=== PATIENT | female | born 1985 | race Caucasian/White ===

== ENCOUNTER 2016-12-03 11:09 | Emergency (ER) | payer SELFPAY ==
[2016-12-03 11:58] VITALS: BMI 32.3
[2016-12-03 12:00] VITALS: BP 103/70; PULSE 74; RESP 18; TEMP 98.7; O2SAT 100
--- NOTE | 2016-12-03 12:13 | ED PDOC ---
Arrival/HPI - General Chief Complaint: ENT Problem Time Seen by Provider: 12/03/16 12:08 Historian: Patient - History of Present Illness Narrative History of Present Illness (Text): 12/03/16 18:12 31-year-old female presents today with a 2 day history of sore throat and pain with swallowing. Denies difficulty breathing. Patient complaining of nasal congestion. Complaining of left ear pain. Denies fevers at home. No chest pain or shortness of breath. Denies cough. No abdominal pain. No other complaints Time/Duration: Other (2 days) Symptom Onset: Gradual Symptom Course: Worsening Quality: Burning Severity Level: 3 Past Medical History - Provider Review Nursing Documentation Reviewed: Yes - Travel History Have you recently traveled outside [place] w/in the past 3 mons?: No - Infectious Disease Hx of Infectious Diseases: None - Tetanus Immunization Tetanus Immunization: Unknown - Past Medical History Past Medical History: No Previous - Psychiatric Hx Psychophysiologic Disorder: No Hx Anxiety: No Hx Bipolar Disorder: No Hx Depression: No Hx Emotional Abuse: No Hx Hallucinations: No Hx Panic Disorder: No Hx Post Traumatic Stress Disorder: No Hx Psychosis: No Hx Physical Abuse: No Hx Schizophrenia: No Hx Sexual Abuse: No Hx Substance Use: Yes - Past Surgical History Past Surgical History: No Previous - Anesthesia Hx Anesthesia: No Hx Anesthesia Reactions: No Hx Malignant Hyperthermia: No - Suicidal Assessment Feels Threatened In Home Enviroment: No Family/Social History - Physician Review Nursing Documentation Reviewed: Yes Family/Social History: Unknown Family HX Smoking Status: Current Some Days Smoker Hx Alcohol Use: Yes Frequency of alcohol use: Socially Hx Substance Use: Yes Hx Substance Use Treatment: No Allergies/Home Meds Allergies/Adverse Reactions: Allergies No Known Allergies Allergy (Verified 11/01/15 01:33) Review of Systems - Review of Systems Constitutional: absent: Fatigue, Fevers ENT: Sore Throat, Sinus Congestion, Other (Left ear pain) Respiratory: absent: SOB, Cough Cardiovascular: absent: Chest Pain, Palpitations Musculoskeletal: absent: Arthralgias Skin: absent: Rash, Pruritis Neurological: absent: Headache, Dizziness Psychiatric: absent: Anxiety, Depression Physical Exam Vital Signs Reviewed: Yes Vital Signs Temp Pulse Resp BP Pulse Ox 12/03/16 11:59 98.7 F 74 18 103/70 100 Temperature: Afebrile Blood Pressure: Normal Pulse: Regular Respiratory Rate: Normal Appearance: Positive for: Well-Appearing, Non-Toxic, Comfortable Pain Distress: None Mental Status: Positive for: Alert and Oriented X 3 - Systems Exam Head: Present: Atraumatic Conjunctiva: Present: Normal Ears: Present: Normal, NORMAL TM Mouth: Present: Moist Mucous Membranes Pharnyx: Present: ERYTHEMA. No: EXUDATE, TONSILS ENLARGED, Peritonsilar Swelling, Uvular Deviation, Muffled/Hoarse Voice Nose (Internal): Present: Normal Inspection Neck: Present: Normal Range of Motion, Trachea Midline. No: Meningeal Signs, Lymphadenopathy Respiratory/Chest: Present: Clear to Auscultation, Good Air Exchange. No: Respiratory Distress, Accessory Muscle Use Cardiovascular: Present: Regular Rate and Rhythm, Normal S1, S2. No: Murmurs Medical Decision Making ED Course and Treatment: 12/03/16 18:11 Patient is nontoxic well appearing in no distress. Vital signs are stable Tolerating p.o. fluids and solids I advised follow up with primary care physician within the next 2 days, advised to increase fluids take medications as prescribed and return if symptoms worsen persist or if new symptoms develop Patient verbalizes understanding of discharge instructions and need for immediate followup. IMPRESSION; pharyngitis Motrin every 6 hours as needed for pain/fever reduction Increase fluids Amoxicillin; One tablet 3 times daily x10 days Flonase; 2 sprays each nostril once daily Follow up primary care physician within the next 2 days Follow up with the ENT specialist within the next 2 days. Saltwater gargles, throat lozenges Return if symptoms worsen persist or if the symptoms develop Disposition/Present on Arrival - Present on Arrival Any Indicators Present on Arrival: No History of DVT/PE: No History of Uncontrolled Diabetes: No Urinary Catheter: No History of Decub. Ulcer: No History Surgical Site Infection Following: None - Disposition Have Diagnosis and Disposition been Completed?: Yes Diagnosis: Pharyngitis, Earache Disposition: HOME/ ROUTINE Disposition Time: 12:10 Patient Plan: Discharge Condition: GOOD Discharge Instructions (ExitCare): Pharyngitis (ED) Additional Instructions: Motrin every 6 hours as needed for pain/fever reduction Increase fluids Amoxicillin; One tablet 3 times daily x10 days Flonase; 2 sprays each nostril once daily Follow up primary care physician within the next 2 days Follow up with the ENT specialist within the next 2 days. Saltwater gargles, throat lozenges Return if symptoms worsen persist or if the symptoms develop Prescriptions: Amoxicillin 500 mg PO TID #30 tab Fluticasone Nasal [Flonase] 2 spr NS DAILY #1 spr Ibuprofen [Motrin] 600 mg PO Q6H PRN #20 tab PRN Reason: pain/fever reduction Referrals: Jacob Dutta DO [Staff Provider] - Follow up with primary Albaro Laird MD [Staff Provider] - Follow up with primary Forms: WORK NOTE
== END 2016-12-03 12:29 | disposition home or self-care (01) ==
LOC: ED 11:09
DX: J02.9 Acute pharyngitis, unspecified (principal); H92.02 Otalgia, left ear; Z72.0 Tobacco use